=== PATIENT | female | born 1985 | race Caucasian/White ===

== ENCOUNTER 2016-09-16 11:08 | Emergency (ER) | payer OTHER ==
[~2016-09-16] VITALS: Ht 165.1 cm; Wt 83.0 kg
[~2016-09-16 11:08] MED LIST: ANT125 PO; GLC/500 PO; LEVO175T3 PO; ONDA4TAB7 SL; SERT-234 PO
[2016-09-16 11:19] VITALS: TEMP 36.6; Ht 165.1 cm; Wt 83.0 kg
[2016-09-16] MEDS ORDERED: SODIUM CHLORIDE 0.9% 1000ML 1,000 ML IV STA (11:20)
--- NOTE | 2016-09-16 11:29 | EMERGENCY ROOM VISIT NOTE ---
History Report prepared by Martin: Chucky Camacho Under the Supervision of: Dr. Alfonso Stovall D.O. First contact with patient: 11:11 Stated Complaint: CHEST PAIN History of Present Illness The patient is a 31 year old female who presents to the Emergency Room with complaints of persistent weakness that started upon waking this morning. She says she "just doesn't feel right" and she "feels like jell-o". The patient notes that she has been feeling foggy and having trouble focusing for the past 2 weeks. The patient had similar symptoms a few years ago and was put on Metformin. She still takes the Metformin. The patient currently says she feels cold and tingly in her hands, and it is hard to take a deep breath. She is tired as well. Her legs feel heavy and she does not have normal strength. The back of her neck hurts, and she has a hard time holding it up. She additionally notes a slight headache coming on. The patient thinks something is going on with her thyroid medication. The patient denies any shortness of breath or chest pain. She said she had recent blood work and her thyroid was up and her insulin was high. The patient's sugar was 86 earlier, so she had 2 puddings and the nurse gave her syrup. She has diabetes, anxiety, and depression. The patient drinks occasional alcohol but does not use tobacco products. She is currently having her period. Source of History: patient Onset: Upon waking this morning Position: other (global - weakness) Symptom Intensity: "feels like Jell-O" Timing: other (persistent) Associated Symptoms: + fatigue, + headache, + neck pain, No SOB, No chest pain Note: Associated symptoms: Feels cold and tingly in hands, hard to take a deep breath , legs feel heavy, does not have normal strength. Review of Systems See HPI for pertinent positives & negatives. A total of 10 systems reviewed and were otherwise negative. Past Medical & Surgical Medical Problems: (1) Anxiety State Nos (2) Depression (3) Hypoinsulinemia (4) Hypothyroidism Nos (5) Migraine Unspecified W/O Intractable Migraine (6) Removal of ovarian cyst (7) Tobacco Use Disorder (8) [place] Teeth Removal Family History Cancer Diabetes mellitus Social History Smoking Status: Former Smoker Smokeless Tobacco Use: No Alcohol Use: occasionally Marital Status: Housing Status: lives with family Occupation Status: employed Current/Historical Medications Scheduled Control Pills ( Control Pills), 1 TAB PO DAILY Levothyroxine Sodium (Levothyroxine Sodium), 150 MCG PO DAILY Lisinopril (Lisinopril), 10 MG PO DAILY Metformin Hcl (Metformin Hcl Er), 1,000 MG PO DAILY Phentermine Hcl (Phentermine Hcl), 37.5 MG PO DAILY Venlafaxine Hcl (Venlafaxine Extended Rel), 37.5 MG PO DAILY Venlafaxine Hcl (Effexor Extended Rel), 150 MG PO DAILY Allergies Coded Allergies: Prednisone (Verified Allergy, Severe, resp, 11/28/14) Sulfa Drugs (Verified Allergy, Mild, 11/28/14) Physical Exam Vital Signs Date Time Temp Pulse Resp B/P Pulse Ox O2 Delivery O2 Flow Rate FiO2 09/16/16 13:36 86 20 139/85 99 09/16/16 12:53 93 18 129/75 100 Room Air 09/16/16 11:19 36.6 93 20 134/92 98 Room Air 09/16/16 11:16 111 Physical Exam GENERAL: Patient is awake and alert to verbal commands. Closes eyes while speaking. Appears mildly anxious but no in pain. EYES: The conjunctivae are clear. The pupils are round and reactive. EARS, NOSE, MOUTH AND THROAT: The nose is without any evidence of any deformity. Mucous membranes are moist tongue is midline NECK: The neck is nontender and supple. RESPIRATORY: Normal respiratory effort is noted there is no evidence of wheezing rhonchi or rales CARDIOVASCULAR: Regular rate and rhythm noted there no murmurs rubs or gallops normal S1 normal S2 GASTROINTESTINAL: The abdomen is soft. Bowel sounds are present in all quadrants. Abdomen is nontender MUSCULOSKELETAL/EXTREMITIES: There is no evidence of gross deformity full range of motion is noted in the hips and shoulders SKIN: There is no obvious evidence of any rash. There are no petechiae, pallor or cyanosis noted. NEUROLOGIC: Patient is awake alert and oriented x3 strength is symmetric patellar reflexes are 2+ bilaterally Medical Decision & Procedures ER Provider Diagnostic Interpretation: X ray results and stated below per my interpretation and radiology interpretation. Other radiology results per my review and radiologist interpretation: CT OF THE HEAD WITHOUT CONTRAST CLINICAL HISTORY: Headache. COMPARISON STUDY: Head CT November 28, 2014. CT DOSE: 537.48 mGy.cm TECHNIQUE: Helical axial images of the head were obtained without IV contrast. Automated exposure control was utilized for the study. FINDINGS: No acute intracranial hemorrhage, midline shift or mass effect is present. Brain volume is normal. Ventricular system is normal. The basilar cisterns are patent. There are no extra-axial collections. Arevalo-white differentiation is maintained. There are no findings to suggest acute dural sinus thrombosis or acute territorial infarct. There are no significant calvarial abnormalities. Visualized portions of the sinuses are clear. IMPRESSION: No acute intracranial findings. Electronically signed by: Breezy Miguel M.D. 09/16/2016 11:56 AM CHEST ONE VIEW PORTABLE HISTORY: Short of breath. COMPARISON: Chest 11/28/2014. FINDINGS: The lungs are clear. Cardiac silhouette is normal in size. No pleural effusions. No pneumothorax. IMPRESSION: No acute process. Electronically signed by: Marcio Valdes M.D. 09/16/2016 11:48 AM Laboratory Results 09/16/16 11:00 Red Blood Count 4.39, Mean Corpuscular Volume 90.2, Mean Corpuscular Hemoglobin 31.4, Mean Corpuscular Hemoglobin Concent 34.8, Mean Platelet Volume 10.5, Neutrophils (%) (Auto) 70.6, Lymphocytes (%) (Auto) 24.8, Monocytes (%) (Auto) 3.1, Eosinophils (%) (Auto) 1.2, Basophils (%) (Auto) 0.1, Neutrophils # (Auto) 8.00, Lymphocytes # (Auto) 2.81, Monocytes # (Auto) 0.35, Eosinophils # (Auto) 0.14, Basophils # (Auto) 0.01 09/16/16 11:00 Test 09/16/16 11:00 09/16/16 11:50 White Blood Count 11.33 K/uL (4.8-10.8) Red Blood Count 4.39 M/uL (4.2-5.4) Hemoglobin 13.8 g/dL (12.0-16.0) Hematocrit 39.6 % (37-47) Mean Corpuscular Volume 90.2 fL (80-100) Mean Corpuscular Hemoglobin 31.4 pg (25-34) Mean Corpuscular Hemoglobin Concent 34.8 g/dl (32-36) Platelet Count 257 K/uL (130-400) Mean Platelet Volume 10.5 fL (7.4-10.4) Neutrophils (%) (Auto) 70.6 % Lymphocytes (%) (Auto) 24.8 % Monocytes (%) (Auto) 3.1 % Eosinophils (%) (Auto) 1.2 % Basophils (%) (Auto) 0.1 % Neutrophils # (Auto) 8.00 K/uL (1.4-6.5) Lymphocytes # (Auto) 2.81 K/uL (1.2-3.4) Monocytes # (Auto) 0.35 K/uL (0.11-0.59) Eosinophils # (Auto) 0.14 K/uL (0-0.5) Basophils # (Auto) 0.01 K/uL (0-0.2) RDW Standard Deviation 42.2 fL (36.4-46.3) RDW Coefficient of Variation 12.7 % (11.5-14.5) Immature Granulocyte % (Auto) 0.2 % Immature Granulocyte # (Auto) 0.02 K/uL (0.00-0.02) Prothrombin Time 10.0 SECONDS (9.0-12.0) Prothromb Time International Ratio 0.9 (0.9-1.1) Activated Partial Thromboplast Time 26.5 SECONDS (21.0-31.0) Partial Thromboplastin Ratio 1.0 D-Dimer < 190 ug/L FEU (0-500) Anion Gap 13.0 mmol/L (3-11) Est Creatinine Clear Calc Drug Dose 98.3 ml/min Estimated GFR () 100.8 Estimated GFR (Non- 87.0 BUN/Creatinine Ratio 9.8 (10-20) Calcium Level 9.6 mg/dl (8.5-10.1) Magnesium Level 2.1 mg/dl (1.8-2.4) Total Bilirubin 0.3 mg/dl (0.2-1) Direct Bilirubin < 0.1 mg/dl (0-0.2) Aspartate Amino Transf (AST/SGOT) 24 U/L (15-37) Alanine Aminotransferase (ALT/SGPT) 47 U/L (12-78) Alkaline Phosphatase 72 U/L (45-117) Total Creatine Kinase 95 U/L (26-192) Creatine Kinase MB 0.9 ng/ml (0.5-3.6) Creatine Kinase MB Ratio 0.9 (0-3.0) Troponin I < 0.015 ng/ml (0-0.045) Total Protein 7.5 gm/dl (6.4-8.2) Albumin 4.1 gm/dl (3.4-5.0) Lipase 112 U/L (73-393) Thyroid Stimulating Hormone (TSH) 0.048 uIu/ml (0.300-4.500) Free Thyroxine 1.35 ng/dl (0.80-1.60) Human Chorionic Gonadotropin, Qual NEG (NEG) Urine Color YELLOW Urine Appearance CLEAR (CLEAR) Urine pH 6.0 (4.5-7.5) Urine Specific [place] 1.018 (1.000-1.030) Urine Protein NEG (NEG) Urine Glucose (UA) NEG (NEG) Urine Ketones NEG (NEG) Urine Occult Blood 3+ (NEG) Urine Nitrite NEG (NEG) Urine Bilirubin NEG (NEG) Urine Urobilinogen NEG (NEG) Urine Leukocyte Esterase NEG (NEG) Urine WBC (Auto) 1-5 /hpf (0-5) Urine RBC (Auto) 0-4 /hpf (0-4) Urine Hyaline Casts (Auto) 1-5 /lpf (0-5) Urine Epithelial Cells (Auto) >30 /lpf (0-5) Urine Bacteria (Auto) 1+ (NEG) Urine Mucus PRESENT (NONE PRSENT) Urine Yeast (Auto) (NONE PRSENT) Laboratory results per my review. Medications Administered Medications (Trade) Dose Ordered Sig/Raghavendra Route Start Time Stop Time Status Last Admin Dose Admin Sodium Chloride (Nss 1000ml) 1,000 ml @ 999 mls/hr Q1H1M STAT IV 09/16/16 11:20 09/16/16 12:20 DC 09/16/16 11:24 999 MLS/HR ECG Indication: weakness Rate (beats per minute): 103 Rhythm: sinus tachycardia Findings: no ectopy, other (no acute ST segment abnormalities, imcomplete RBBB pattern noted) Change: no significant change (compared to 11/28/2014) ED Course 1114: The patient was evaluated in room C4. A complete history and physical examination were performed. 1120: Ordered NSS 1000 ml @ 999 mls/hr IV. 1328: I reevaluated the patient and she is resting comfortably. The patient verbally expressed understanding and agreement of the treatment plan. The patient will be discharged. Medical Decision Differential diagnosis: Etiologies such as metabolic, infection, hypo/hyperglycemia, electrolyte abnormalities, cardiac sources, intracerebral event, toxicologic, neurologic, as well as others were entertained. Nursing notes reviewed. The patient is a 31-year-old female who presented to the emergency department with multiple complaints. She states that she does not feel well and states that she feels very weak. She has generalized weakness which was all over. She also complains of numbness in her extremities. She was not hyperventilating when she presented to the emergency department but it is possible this is the cause of her symptoms. No other cause could be found. Her left which did not show any acute abnormality that would explain the symptoms. The patient was treated with IV fluids and on subsequent reevaluation was feeling much better. She had no symptoms on final reevaluation. I discussed the patient's laboratory and radiographic studies with her. She was encouraged to rest and avoid any strenuous activity. She was also encouraged follow-up with her primary care physician to discuss any further testing such as MRI the brain or EEG. She was also encouraged to return to the emergency department immediately if symptoms change worsen or if the need arises. Impression Primary Impression: Weakness Additional Impression: Headache Scribe Attestation The scribe's documentation has been prepared under my direction and personally reviewed by me in its entirety. I confirm that the note above accurately reflects all work, treatment, procedures, and medical decision making performed by me. Departure Information Dispostion Home / Self-Care Referrals [facility] (PCP) Radha De La O Forms HOME CARE DOCUMENTATION FORM, IMPORTANT VISIT INFORMATION, Work Instructions Patient Instructions A Signature Page, ED Weakness [facility] Additional Instructions Call your family to schedule a follow-up appointment. Rest and avoid any strenuous activity. Discussed the possibility that you may require further studies such as an MRI the brain or an EEG if symptoms worsen or seemed to be more like seizure. Return to the emergency department if symptoms worsen or if need arises.
[2016-09-16 11:30] LABS: BASO % 0.1 %; BASO ABS # 0.01 K/uL (0-0.2); COMPLETE YES; EOS % 1.2 %; HEMATOCRIT 39.6 % (37-47); IG% 0.2 %; LYMPH % 24.8 %; LYMPH ABS # 2.81 K/uL (1.2-3.4); MEAN CELL VOLUME 90.2 fL (80-100); MEAN CORPUSCULAR HEMOGLOBIN 31.4 pg (25-34); MEAN CORPUSCULAR HGB CONC 34.8 g/dl (32-36); MEAN PLATELET VOLUME 10.5 fL (7.4-10.4); MONO % 3.1 %; NEUT % 70.6 %; PLATELET COUNT 257 K/uL (130-400); RED BLOOD COUNT 4.39 M/uL (4.2-5.4); WHITE BLOOD COUNT 11.33 K/uL (4.8-10.8)
[2016-09-16 11:41] LABS: INR 0.9 (0.9-1.1)
[2016-09-16 11:50] LABS: ALT/SGPT 47 U/L (12-78); BLOOD UREA NITROGEN 9 mg/dl (7-18); BUN/CREATININE RATIO 9.8 (10-20); CALCIUM 9.6 mg/dl (8.5-10.1); CARBON DIOXIDE 22 mmol/L (21-32); CHLORIDE 106 mmol/L (98-107); CREATININE 0.89 mg/dl (0.60-1.20); GLUCOSE 114 mg/dl (70-99); MAGNESIUM 2.1 mg/dl (1.8-2.4); POTASSIUM 3.5 mmol/L (3.5-5.1); SODIUM 141 mmol/L (136-145)
--- NOTE | 2016-09-16 11:50 | DIAGNOSTIC IMAGING REPORT ---
CHEST ONE VIEW PORTABLE HISTORY: Short of breath. COMPARISON: Chest 11/28/2014. FINDINGS: The lungs are clear. Cardiac silhouette is normal in size. No pleural effusions. No pneumothorax. IMPRESSION: No acute process. Electronically signed by: Marcio Valdes M.D. 09/16/2016 11:48 AM
[2016-09-16 11:55] LABS: PREG INTERNAL NEGATIVE QC NEG CLEAR BACKGROUND; PREG INTERNAL POSITIVE QC POS CONTROL LINE
--- NOTE | 2016-09-16 11:58 | DIAGNOSTIC IMAGING REPORT ---
CT OF THE HEAD WITHOUT CONTRAST CLINICAL HISTORY: Headache. COMPARISON STUDY: Head CT November 28, 2014. CT DOSE: 537.48 mGy.cm TECHNIQUE: Helical axial images of the head were obtained without IV contrast. Automated exposure control was utilized for the study. FINDINGS: No acute intracranial hemorrhage, midline shift or mass effect is present. Brain volume is normal. Ventricular system is normal. The basilar cisterns are patent. There are no extra-axial collections. Arevalo-white differentiation is maintained. There are no findings to suggest acute dural sinus thrombosis or acute territorial infarct. There are no significant calvarial abnormalities. Visualized portions of the sinuses are clear. IMPRESSION: No acute intracranial findings. Electronically signed by: Breezy Miguel M.D. 09/16/2016 11:56 AM
[2016-09-16 11:59] LABS: ALKALINE PHOSPHATASE 72 U/L (45-117); AST/SGOT 24 U/L (15-37); CKMB/CK RATIO 0.9 (0-3.0); THYROID STIMULATING HORMONE 0.048 uIu/ml (0.300-4.500)
[2016-09-16] MEDS ORDERED: BCPILLS PO (12:07)
[2016-09-16] MEDS ORDERED: VENL37.593 PO (12:07)
[2016-09-16] MEDS ORDERED: LEVO150T9 PO (12:07)
[2016-09-16] MEDS ORDERED: PHEN37.5 PO (12:07)
[2016-09-16] MEDS ORDERED: METF1TAB85 PO (12:07)
[2016-09-16] MEDS ORDERED: EFFSR150 PO (12:07)
[2016-09-16] MEDS ORDERED: LISI-461 PO (12:07)
[2016-09-16 12:25] LABS: URINE APPEARANCE CLEAR (CLEAR); URINE BILIRUBIN NEG (NEG); URINE COLOR YELLOW; URINE EPITHELIAL CELL AUTO >30 /lpf (0-5); URINE NITRITE NEG (NEG); URINE SPECIFIC GRAVITY 1.018 (1.000-1.030); UROBILINOGEN NEG (NEG)
[2016-09-16 12:26] LABS: MANUAL MICROSCOPIC REQUIRED? NO; REVIEW REQ? YES
[2016-09-16 12:34] LABS: URINE MUCUS PRESENT (NONE PRSENT)
[2016-09-16 13:36] VITALS: BP 139/85; PULSE 86; O2SAT 99
[2017-03-07] MEDS ORDERED: VENL150C56 PO (19:36)
== END 2016-09-16 13:37 | disposition home or self-care (01) ==
LOC: EDBD 11:08 → C.EDC 11:09
DX: R53.1 Weakness (principal); R51 Headache; E11.9 Type 2 diabetes mellitus without complications; E03.9 Hypothyroidism, unspecified; F32.9 Major depressive disorder, single episode, unspecified; Z87.891 Personal history of nicotine dependence; Z79.3 Long term (current) use of hormonal contraceptives; Z79.84 Long term (current) use of oral hypoglycemic drugs; Z79.899 Other long term (current) drug therapy; Z88.2 Allergy status to sulfonamides; Z88.8 Allergy status to other drugs, medicaments and biological substances

== ENCOUNTER 2017-03-07 18:21 | Emergency (ER) | payer OTHER ==
[~2017-03-07] VITALS: Ht 162.6 cm; Wt 80.6 kg
[~2017-03-07 18:21] MED LIST changes: -ANT125 PO; +BCPILLS PO; +EFFSR150 PO; -GLC/500 PO; +LEVO150T9 PO; -LEVO175T3 PO; +LISI-461 PO; +METF1TAB85 PO; -ONDA4TAB7 SL; +PHEN37.5 PO; -SERT-234 PO; +VENL37.593 PO
[2017-03-07 18:25] VITALS: Ht 162.6 cm; Wt 80.6 kg
[2017-03-07] MEDS ORDERED: KETOROLAC TROMETHAMINE 30 MG/ML VIAL IV STA (18:34)
[2017-03-07] MEDS ORDERED: ONDANSETRON INJ 2 MG/ML 2 ML VIAL IV STA (18:34)
[2017-03-07] MEDS ORDERED: SODIUM CHLORIDE 0.9% 1000ML 1,000 ML IV STA (18:34)
[2017-03-07 19:08] LABS: BASO % 0.4 %; BASO ABS # 0.02 K/uL (0-0.2); COMPLETE YES; EOS % 3.6 %; HEMATOCRIT 39.6 % (37-47); IG% 0.2 %; LYMPH % 41.6 %; LYMPH ABS # 2.06 K/uL (1.2-3.4); MEAN CELL VOLUME 89.2 fL (80-100); MEAN CORPUSCULAR HGB CONC 33.6 g/dl (32-36); MEAN PLATELET VOLUME 10.1 fL (7.4-10.4); MONO % 9.7 %; NEUT % 44.5 %; PLATELET COUNT 170 K/uL (130-400); RED BLOOD COUNT 4.44 M/uL (4.2-5.4); WHITE BLOOD COUNT 4.95 K/uL (4.8-10.8)
[2017-03-07 19:25] LABS: URINE APPEARANCE CLEAR (CLEAR); URINE BILIRUBIN NEG (NEG); URINE COLOR DK YELLOW; URINE NITRITE NEG (NEG); URINE SPECIFIC GRAVITY 1.022 (1.000-1.030); UROBILINOGEN NEG (NEG); ZZUR CULT IF INDIC CLEAN CATCH NO
[2017-03-07 19:26] LABS: ALT/SGPT 46 U/L (12-78); BLOOD UREA NITROGEN 10 mg/dl (7-18); BUN/CREATININE RATIO 15.4 (10-20); CALCIUM 8.3 mg/dl (8.5-10.1); CARBON DIOXIDE 24 mmol/L (21-32); CHLORIDE 109 mmol/L (98-107); CREATININE 0.63 mg/dl (0.60-1.20); GLUCOSE 93 mg/dl (70-99); POTASSIUM 3.2 mmol/L (3.5-5.1); SODIUM 142 mmol/L (136-145)
[2017-03-07 19:27] LABS: MANUAL MICROSCOPIC REQUIRED? NO; REVIEW REQ? NO
[2017-03-07 19:33] LABS: ALKALINE PHOSPHATASE 81 U/L (45-117); AST/SGOT 27 U/L (15-37)
[2017-03-07] MEDS ORDERED: LEVO150T9 PO (19:35)
[2017-03-07] MEDS ORDERED: EFF/375 PO (19:37)
[2017-03-07] MEDS ORDERED: NORGTAB36 PO (19:39)
--- NOTE | 2017-03-07 19:50 | EMERGENCY ROOM VISIT NOTE ---
History Report prepared by Martin: Pablo Jones Under the Supervision of: Dr. Jordan Collado D.O. First contact with patient: 18:28 Chief Complaint: NAUSEA Stated Complaint: DIZZINESS, N/V History of Present Illness The patient is a 31 year old female who presents to the Emergency Room with complaints of nausea that began today. Over the past couple of days, the patient states she passed 1 or 2 kidney stones. She has a history of this and notes that when she passes them, she tends to feel better. However, she does not feel back to baseline after passing these stones. She notes that she has been having this nausea with vomiting, chills, diaphoresis, mild dizziness, and increased thirst. She also states that her flanks still hurt. She has been on an antibiotic for the past three days that was prescribed by her PCP secondary to a possible urinary tract infection. She denies any fevers, shortness of breath, or chest pain. Her last menstrual period was about 4 weeks ago. She states that she is not typically on time. She is taking Orthotricycline, and notes her period sometimes comes every other month. Source of History: patient Onset: today Position: other (GI) Symptom Intensity: moderate Quality: other (Nausea) Timing: other (Persistent) Associated Symptoms: + chills, + diaphoresis, + vomiting, + back pain, No fevers, No chest pain, No SOB Note: She has mild dizziness and an increased thirst. Review of Systems See HPI for pertinent positives & negatives. A total of 10 systems reviewed and were otherwise negative. Past Medical & Surgical Medical Problems: (1) Kidney stones Family History Patient reports no known family medical history. Social History Smoking Status: Never Smoker Smokeless Tobacco Use: No Alcohol Use: occasionally Marital Status: Housing Status: lives with family Occupation Status: employed Current/Historical Medications Scheduled Levothyroxine Sodium (Levothyroxine Sodium), 150 MCG PO DAILY Norgestimate-Ethinyl Estradiol (Ortho Tri-Cyclen), 1 TAB PO DAILY Venlafaxine Hcl (Effexor Extended Rel), 150 MG PO DAILY Venlafaxine Hcl (Effexor), 37.5 MG PO DAILY Allergies Uncoded Allergies: SULFA (Allergy, Mild, hives, 03/07/17) Physical Exam Vital Signs Date Time Temp Pulse Resp B/P (MAP) Pulse Ox O2 Delivery O2 Flow Rate FiO2 03/07/17 18:25 37.4 87 16 142/94 97 Room Air Physical Exam CONSTITUTIONAL/VITAL SIGNS: Reviewed / noted above. GENERAL: Non-toxic in appearance. INTEGUMENTARY: Warm, dry, and [place]. HEAD: Normocephalic. EYES: without scleral icterus or trauma. ENT/OROPHARYNX: clear and moist. LYMPHADENOPATHY/NECK: Is supple without lymphadenopathy or meningismus. RESPIRATORY: Lungs clear and equal. CARDIOVASCULAR: Regular rate and rhythm. GI/ABDOMEN: Soft and nontender. No organomegaly or pulsatile mass. No rebound or guarding. Normal bowel sounds. EXTREMITIES: Warm and well perfused. BACK: Left CVA tenderness. NEUROLOGICAL: Intact without focal deficits. PSYCHIATRIC: normal affect. MUSCULOSKELETAL: Normally developed with good muscle tone. Medical Decision & Procedures Laboratory Results 03/07/17 18:48 Red Blood Count 4.44, Mean Corpuscular Volume 89.2, Mean Corpuscular Hemoglobin 30.0, Mean Corpuscular Hemoglobin Concent 33.6, Mean Platelet Volume 10.1, Neutrophils (%) (Auto) 44.5, Lymphocytes (%) (Auto) 41.6, Monocytes (%) (Auto) 9.7, Eosinophils (%) (Auto) 3.6, Basophils (%) (Auto) 0.4, Neutrophils # (Auto) 2.20, Lymphocytes # (Auto) 2.06, Monocytes # (Auto) 0.48, Eosinophils # (Auto) 0.18, Basophils # (Auto) 0.02 03/07/17 18:48 Test 03/07/17 18:48 03/07/17 18:50 White Blood Count 4.95 K/uL (4.8-10.8) Red Blood Count 4.44 M/uL (4.2-5.4) Hemoglobin 13.3 g/dL (12.0-16.0) Hematocrit 39.6 % (37-47) Mean Corpuscular Volume 89.2 fL (80-100) Mean Corpuscular Hemoglobin 30.0 pg (25-34) Mean Corpuscular Hemoglobin Concent 33.6 g/dl (32-36) Platelet Count 170 K/uL (130-400) Mean Platelet Volume 10.1 fL (7.4-10.4) Neutrophils (%) (Auto) 44.5 % Lymphocytes (%) (Auto) 41.6 % Monocytes (%) (Auto) 9.7 % Eosinophils (%) (Auto) 3.6 % Basophils (%) (Auto) 0.4 % Neutrophils # (Auto) 2.20 K/uL (1.4-6.5) Lymphocytes # (Auto) 2.06 K/uL (1.2-3.4) Monocytes # (Auto) 0.48 K/uL (0.11-0.59) Eosinophils # (Auto) 0.18 K/uL (0-0.5) Basophils # (Auto) 0.02 K/uL (0-0.2) RDW Standard Deviation 41.9 fL (36.4-46.3) RDW Coefficient of Variation 12.9 % (11.5-14.5) Immature Granulocyte % (Auto) 0.2 % Immature Granulocyte # (Auto) 0.01 K/uL (0.00-0.02) Anion Gap 9.0 mmol/L (3-11) Est Creatinine Clear Calc Drug Dose 134.1 ml/min Estimated GFR () 139.5 Estimated GFR (Non- 120.4 BUN/Creatinine Ratio 15.4 (10-20) Calcium Level 8.3 mg/dl (8.5-10.1) Total Bilirubin 0.2 mg/dl (0.2-1) Direct Bilirubin < 0.1 mg/dl (0-0.2) Aspartate Amino Transf (AST/SGOT) 27 U/L (15-37) Alanine Aminotransferase (ALT/SGPT) 46 U/L (12-78) Alkaline Phosphatase 81 U/L (45-117) Total Protein 6.5 gm/dl (6.4-8.2) Albumin 3.2 gm/dl (3.4-5.0) Lipase 163 U/L (73-393) Urine Color DK YELLOW Urine Appearance CLEAR (CLEAR) Urine pH 6.0 (4.5-7.5) Urine Specific [place] 1.022 (1.000-1.030) Urine Protein NEG (NEG) Urine Glucose (UA) NEG (NEG) Urine Ketones NEG (NEG) Urine Occult Blood TRACE (NEG) Urine Nitrite NEG (NEG) Urine Bilirubin NEG (NEG) Urine Urobilinogen NEG (NEG) Urine Leukocyte Esterase NEG (NEG) Urine WBC (Auto) 1-5 /hpf (0-5) Urine RBC (Auto) 0-4 /hpf (0-4) Urine Hyaline Casts (Auto) 1-5 /lpf (0-5) Urine Epithelial Cells (Auto) 10-20 /lpf (0-5) Urine Bacteria (Auto) NEG (NEG) Urine Test NEG (NEG) Laboratory results as stated above per my review. Medications Administered Medications (Trade) Dose Ordered Sig/Raghavendra Route Start Time Stop Time Status Last Admin Dose Admin Sodium Chloride 1,000 ml @ 999 mls/hr Q1H1M STAT IV 03/07/17 18:34 03/07/17 19:34 DC 03/07/17 18:53 999 MLS/HR Ondansetron HCl (Zofran Inj) 4 mg NOW STAT IV 03/07/17 18:34 03/07/17 18:35 DC 03/07/17 18:53 4 MG Ketorolac Tromethamine (Toradol Inj) 30 mg NOW STAT IV 03/07/17 18:34 03/07/17 18:35 DC 03/07/17 18:55 30 MG ED Course 1827: Previous medical records were reviewed. The patient was evaluated in room B10. A complete history and physical examination was performed. 1833: Ordered Toradol Inj 30 mg IV, Zofran Inj 4 mg IV, Sodium Chloride 1000 ml @ 999 mls/hr IV. 1950: On reevaluation, the patient is resting comfortably. I discussed the results and findings with the patient. She verbalized agreement of the treatment plan. She was discharged home. Medical Decision Differential considered: pancreatitis, hepatitis, or acute cholecystitis, AAA, UTI, pyelonephritis, kidney stones, appendicitis, diverticulitis, shingles, bowel obstruction mesenteric ischemia, intussusception, hernia, ovarian torsion , ruptured ovarian cyst,ectopic , . Medication Reconciliation: I attest that I have personally reviewed the patient' s current medication list. Patient was found to have a slightly elevated blood pressure due to circumstances. I do not believe that the patient requires hypertension monitoring. This is a 31-year-old female who presents to the ED with a chief complaint of some nausea, lightheadedness and feeling dehydrated. The patient states that she thinks that she may past kidney stone this weekend. Since that time the patient has been feeling dehydrated although nauseated. She states that she does have some Zofran at home. Her initial blood pressure here was 142/94. This is likely situational. The patient's exam was unremarkable with exception of some mild left CVA tenderness. CBC and complete metabolic panel were unremarkable. Lipase is negative. test was negative. Urine did not show infection. There is a trace amount of blood. The patient was hydrated with IV fluids. She was given some IV Toradol and IV Zofran. She states that she is feeling better. She is felt to be stable for discharge and outpatient follow-up. She will return for any recurrence or worsening symptoms. Impression Primary Impression: Nausea Additional Impressions: Lightheaded Flank pain Scribe Attestation The scribe's documentation has been prepared under my direction and personally reviewed by me in its entirety. I confirm that the note above accurately reflects all work, treatment, procedures, and medical decision making performed by me. Departure Information Dispostion Home / Self-Care Referrals Radha De La [facility] (PCP) Forms HOME CARE DOCUMENTATION FORM, IMPORTANT VISIT INFORMATION Patient Instructions My [facility] Additional Instructions Follow-up with your doctor for further care and evaluation in 1-2 days if symptoms persist. Return to the emergency department for worsening or new symptoms or any concerns. You have been examined and treated today on an emergency basis only. This is not a substitute for, or an effort to provide, complete comprehensive medical care. It is impossible to recognize and treat all injuries or illnesses in a single emergency department visit. It is therefore important that you follow up closely with your doctor. Call as soon as possible for an appointment. Problem Qualifiers
[2017-03-07 20:25] VITALS: BP 128/87; PULSE 81; TEMP 37.4; O2SAT 97
== END 2017-03-07 20:26 | disposition home or self-care (01) ==
LOC: C.EDB 18:23 → MERGE 18:23 → C.EDB 20:26
DX: R11.2 Nausea with vomiting, unspecified (principal); R42 Dizziness and giddiness; R10.9 Unspecified abdominal pain; N20.0 Calculus of kidney; Z87.442 Personal history of urinary calculi; Z79.3 Long term (current) use of hormonal contraceptives

== ENCOUNTER 2017-07-06 17:42 | Emergency (ER) | payer OTHER ==
[~2017-07-06] VITALS: Ht 165.1 cm; Wt 85.8 kg
[~2017-07-06 17:42] MED LIST changes: +EFF/375 PO; +NORGTAB36 PO
[2017-07-06 17:43] VITALS: TEMP 36.6; Ht 165.1 cm; Wt 85.8 kg
[2017-07-06] MEDS ORDERED: SODIUM CHLORIDE 0.9% 1000ML 1,000 ML IV STA (17:57)
--- NOTE | 2017-07-06 18:03 | EMERGENCY ROOM VISIT NOTE ---
History Report prepared by Kayibe: Lakeisha Maldonado Under the Supervision of: Dr. Sammy Liriano M.D. First contact with patient: 17:46 Chief Complaint: HEADACHE Stated Complaint: HEADACHE,SWOLLEN OCCIPITAL History of Present Illness The patient is a 32 year old female who presents to the Emergency Room with complaints of a pressure headache beginning Tuesday. The patient states her headache was controlled with Ibuprofen until this morning. Today, the patient went to a chiropractor who she sees for her migraines. Her chiropractor told the patient her occipital muscles were swollen. The patient was unable to get the swelling down with ice. She notes seeing black spots, nausea, and ear pressure. She denies any numbness or weakness, abdominal pain, fever, or vaginal bleeding. The patient has a history of migraines but states that she hasn't had a migraine this severe in a couple years. The patient is 10 weeks and has had no issues with her thus far. She has two children and denies having headaches with her previous pregnancies. Source of History: patient Onset: Tuesday Position: head Symptom Intensity: severe Quality: ache, pressure Associated Symptoms: + nausea, No fevers, No abdominal pain, No weakness, No numbness Note: Pt notes ear pressure and seeing black spots. Review of Systems See HPI for pertinent positives & negatives. A total of 10 systems reviewed and were otherwise negative. Past Medical & Surgical Medical Problems: (1) Anxiety State Nos (2) Depression (3) Hypoinsulinemia (4) Hypothyroidism Nos (5) Kidney stones (6) Migraine Unspecified W/O Intractable Migraine (7) Removal of ovarian cyst (8) Tobacco Use Disorder (9) [place] Teeth Removal Old medical records were reviewed. Nurse's notes were reviewed and I agree with. Family History Cancer Diabetes mellitus Social History Smoking Status: Never Smoker Alcohol Use: occasionally Marital Status: Housing Status: lives with family Occupation Status: employed Current/Historical Medications Scheduled Levothyroxine Sodium (Levothyroxine Sodium), 200 MCG PO QAM Venlafaxine Hcl (Effexor Extended Rel), 150 MG PO DAILY Scheduled PRN Ondansetron (Ondansetron HCl), 8 MG PO TID PRN for Nausea Allergies Coded Allergies: Prednisone (Verified Allergy, Severe, resp, 11/28/14) Sulfa Drugs (Verified Allergy, Mild, 11/28/14) Uncoded Allergies: SULFA (Allergy, Mild, hives, 03/08/17) Physical Exam Vital Signs Date Time Temp Pulse Resp B/P (MAP) Pulse Ox O2 Delivery O2 Flow Rate FiO2 07/06/17 18:59 72 18 136/91 98 Room Air 07/06/17 17:43 36.6 83 16 179/129 98 Room Air Physical Exam General: Non-ill appearing young female in no acute distress. HEENT: Normal cephalic atraumatic. Pupils are equal round and reactive to light. Extraocular movements. No photophobia. Oropharynx is pink with moist mucous membranes. No swelling of the mouth lips or tongue. No brudzinski signs. No visible swelling or redness to occipital. Neck: Supple with a midline trachea. No meningeal signs or stiffness, no JVD or bruits. No Stridor. Chest: Clear to auscultation bilaterally. No wheezes or rhonchi. No increased work of breathing. Heart: regular rate and rhythm. Abdomen: Soft nontender, nondistended without rebound guarding or rigidity. Extremities: No cyanosis clubbing or edema. No calf tenderness or assymetry Spine/Back. Non tender to palpation. No CVA tenderness Skin: Good turgor without rashes. Neurologic exam: Cranial nerves two through 12 are intact. Motor and sensation are intact and symmetrical throughout. Medical Decision & Procedures Medications Administered Medications (Trade) Dose Ordered Sig/Raghavendra Route Start Time Stop Time Status Last Admin Dose Admin Sodium Chloride 1,000 ml @ 999 mls/hr Q1H1M STAT IV 07/06/17 17:57 07/06/17 18:57 DC 07/06/17 17:57 999 MLS/HR Acetaminophen (Tylenol Tab) 1,000 mg NOW STAT PO 07/06/17 18:12 07/06/17 18:13 DC 07/06/17 18:20 1,000 MG Prochlorperazine Edisylate (Compazine Inj) 10 mg NOW STAT IV 07/06/17 18:12 07/06/17 18:13 DC 07/06/17 18:19 10 MG Oxycodone HCl (Roxicodone Immediate Rel 5MG Home Pack) 1 homepack UD ONCE PO 07/06/17 19:00 07/06/17 19:01 DC 07/06/17 19:03 1 HOMEPACK ED Course 175: Past medical records reviewed. The patient was evaluated in room B5, and a complete history and physical examination were performed. 175: Sodium Chloride 1000 ml @ 999 mls/hr IV. 1811: Compazine Inj 10 mg IV, Tylenol Tab 1000 mg PO. 1815: I reassessed the patient, she is resting comfortably. 1853: The patient is feeling better and reports she is now tired. I offered more pain medication but she declined and will take some oxycodone IR at home. 1858: The patient's blood pressure is 136/91. 1906: Upon reevaluation, the patient is resting comfortably. I discussed the results and treatment plan with the patient. She verbalized agreement of the treatment plan. The patient was discharged home. Medical Decision Differential diagnosis includes: migraine, infection, trauma, related illness, electrolyte metabolic abnormality. This patient comes in as described above. She is having a headache that is consistent with her previous migraine. She has a long history of this. She is and she went to her chiropractor and got adjusted felt a little bit better. She feels she is swollen in the occipital area. She is nontoxic and non-lethargic. She has nothing to suggest meningitis or encephalitis or trauma or toxicologic process. His headache did not start suddenly abruptly but is getting gradually worse. IV access established was hydrated 1 L IV normal saline bolus. I discussed medications with her ED pharmacist and given the fact she is we felt the best option was Compazine 10 mg IV as well as Tylenol 1 g by mouth. With these measures she was started to feel better she felt a little bit sleepy. I offered to give her some more pain medication with morphine she does not want to take up with neurologist go home and getting over a home pack of OxyIR that she can use 5 mg, one or 2 pills every 4-6 hours as needed. This may make her sleep and help her. She is not driving. I encouraged to follow-up with her doctor tomorrow. Her blood pressure was elevated significant initially which I think was related to pain however prior discharge this to become normotensive. She was happy with the plan and discharged home. Medication Reconcilliation Current Medication List: was personally reviewed by me Blood Pressure Screening Patient's blood pressure: Elevated blood pressure Blood pressure disposition: Elevated BP felt to be situational Impression Primary Impression: Migraine Additional Impression: Scribe Attestation The scribe's documentation has been prepared under my direction and personally reviewed by me in its entirety. I confirm that the note above accurately reflects all work, treatment, procedures, and medical decision making performed by me. Departure Information Dispostion Home / Self-Care Referrals No Doctor, Assigned (PCP) Forms HOME CARE DOCUMENTATION FORM, IMPORTANT VISIT INFORMATION Patient Instructions My [facility] Additional Instructions Rest. Drink plenty of fluids. For pain may use acetaminophen/Tylenol, maximum of 650 mg every 6 hours. Do not take with any other medications that contain acetaminophen/Tylenol Do not use ibuprofen or aspirin For more severe pain, may try OxyIR 5 mg, one or 2 pills every 4-6 hours as needed OxyIR may make you drowsy and do not take before drinking, driving, working Return if: Increasing pain, worsening of symptoms, fever or chills, any new problems or concerns. Follow up with her doctor tomorrow for recheck Problem Qualifiers
[2017-07-06] MEDS ORDERED: ACETAMINOPHEN 500 MG TAB PO STA (18:12)
[2017-07-06] MEDS ORDERED: PROCHLORPERAZINE 5 MG/ML 2 ML VIAL IV STA (18:12)
[2017-07-06] MEDS ORDERED: ONDA-63 PO (18:17)
[2017-07-06] MEDS ORDERED: LEVO200T6 PO (18:17)
[2017-07-06 18:59] VITALS: BP 136/91; PULSE 72; O2SAT 98
[2017-07-06] MEDS ORDERED: OXYCODONE IR HOME PACK PO ONE (19:00)
[2017-07-06] MEDS ORDERED: VENL150C56 PO (19:36)
== END 2017-07-06 19:38 | disposition home or self-care (01) ==
LOC: C.EDB 17:43
DX: O99.351 Diseases of the nervous system complicating pregnancy, first trimester (principal); O99.341 Other mental disorders complicating pregnancy, first trimester; O99.281 Endocrine, nutritional and metabolic diseases complicating pregnancy, first trimester; G43.909 Migraine, unspecified, not intractable, without status migrainosus; F41.9 Anxiety disorder, unspecified; F32.9 Major depressive disorder, single episode, unspecified; E03.9 Hypothyroidism, unspecified; Z3A.10 10 weeks gestation of pregnancy; Z83.3 Family history of diabetes mellitus

== ENCOUNTER 2017-07-24 12:15 | Emergency (ER) | payer OTHER ==
[~2017-07-24] VITALS: Ht 165.1 cm; Wt 85.9 kg
[~2017-07-24 12:15] MED LIST changes: -BCPILLS PO; -EFF/375 PO; -EFFSR150 PO; -LEVO150T9 PO; +LEVO200T6 PO; -LISI-461 PO; -METF1TAB85 PO; -NORGTAB36 PO; +ONDA-63 PO; -PHEN37.5 PO; +VENL150C56 PO; -VENL37.593 PO
[2017-07-24 12:17] VITALS: TEMP 36.8
[2017-07-24] MEDS ORDERED: ONDANSETRON INJ 2 MG/ML 2 ML VIAL IV STA (12:45)
[2017-07-24] MEDS ORDERED: SODIUM CHLORIDE 0.9% 1000ML 1,000 ML IV STA (12:45)
[2017-07-24 13:03] VITALS: Ht 165.1 cm; Wt 85.9 kg
[2017-07-24 13:04] VITALS: O2SAT 96
[2017-07-24] MEDS ORDERED: LBT100 PO (13:04)
[2017-07-24] MEDS ORDERED: MULT-506 PO (13:04)
[2017-07-24 13:05] LABS: BASO % 0.1 %; BASO ABS # 0.01 K/uL (0-0.2); COMPLETE YES; EOS % 0.8 %; HEMATOCRIT 41.1 % (37-47); IG% 0.3 %; LYMPH % 21.6 %; LYMPH ABS # 2.46 K/uL (1.2-3.4); MEAN CELL VOLUME 91.3 fL (80-100); MEAN CORPUSCULAR HEMOGLOBIN 30.4 pg (25-34); MEAN CORPUSCULAR HGB CONC 33.3 g/dl (32-36); MEAN PLATELET VOLUME 10.3 fL (7.4-10.4); MONO % 6.1 %; NEUT % 71.1 %; PLATELET COUNT 241 K/uL (130-400); WHITE BLOOD COUNT 11.38 K/uL (4.8-10.8)
--- NOTE | 2017-07-24 13:36 | EMERGENCY ROOM VISIT NOTE ---
History Report prepared by Martin: Esmer Goldman Under the Supervision of: Dr. Alfonso Stovall D.O. 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 The patient is currently 12 weeks . She called the division order analyst community development aide doctor who sent her to the ED. She has been feeling dizzy and nauseous. Her dizziness worsens when she stands up. She feels like she might pass out. She denies any room spinning. She has some lower abdominal cramping which feels like menstrual cramps which started yesterday. She has had some vomiting. She denies any increased urination, hematuria, vaginal bleeding, leg cramping, or SOB. This is her 4th . She has 2 children and 1 miscarriage. She does not recall having these symptoms with her previous pregnancies. She was started on labetalol 2 weeks ago for hypertension related to her . She was on labetalol during her previous without any problems. She denies any other new medications. She denies any previous surgeries. She denies any tobacco or alcohol use. Source of History: patient Onset: yesterday Position: other (global) Quality: other (dizziness) Timing: other (persistent) Modifying Factors (Worsening): other (standing up) Associated Symptoms: + nausea, + vomiting, + abdominal pain, No SOB, No urinary symptoms Note: Pt denies vaginal bleeding, leg cramping. Review of Systems See HPI for pertinent positives & negatives. A total of 10 systems reviewed and were otherwise negative. Past Medical & Surgical Medical Problems: (1) Anxiety State Nos (2) Depression (3) Hypoinsulinemia (4) Hypothyroidism Nos (5) Kidney stones (6) Migraine Unspecified W/O Intractable Migraine (7) Removal of ovarian cyst (8) Tobacco Use Disorder (9) [place] Teeth Removal Family History Cancer Diabetes mellitus Social History Smoking Status: Never Smoker Alcohol Use: occasionally Marital Status: Housing Status: lives with family Occupation Status: employed Current/Historical Medications Scheduled Labetalol HCl (Labetalol HCl), 1 TAB PO DAILY Levothyroxine Sodium (Levothyroxine Sodium), 200 MCG PO QAM Multivitamin (Multivitamin), 1 TAB PO DAILY Ondasetron Odt (Zofran Odt), 4 MG SL Q6H Venlafaxine Hcl (Effexor Extended Rel), 150 MG PO DAILY Scheduled PRN Ondansetron (Ondansetron HCl), 8 MG PO TID PRN for Nausea Allergies Coded Allergies: Prednisone (Verified Allergy, Severe, resp, 07/24/17) Sulfa Drugs (Verified Allergy, Mild, 07/24/17) Physical Exam Vital Signs Date Time Temp Pulse Resp B/P (MAP) Pulse Ox O2 Delivery O2 Flow Rate FiO2 07/24/17 16:52 76 18 134/76 96 07/24/17 15:56 94 18 146/76 96 Room Air 07/24/17 13:15 80 134/81 96 Room Air 74 143/88 88 134/91 07/24/17 13:04 96 Room Air 07/24/17 12:35 96 Room Air 07/24/17 12:31 80 07/24/17 12:17 36.8 92 20 146/91 99 Room Air Physical Exam GENERAL: Patient is awake, alert, and in no acute distress. Patient is resting comfortably and showing no signs of anxiety EYES: The conjunctivae are clear. The pupils are round and reactive. EARS, NOSE, MOUTH AND THROAT: The nose is without any evidence of any deformity. Mucous membranes are moist tongue is midline NECK: The neck is nontender and supple. RESPIRATORY: Normal respiratory effort is noted there is no evidence of wheezing rhonchi or rales CARDIOVASCULAR: Regular rate and rhythm noted there no murmurs rubs or gallops normal S1 normal S2 GASTROINTESTINAL: The abdomen is soft. There was lower abdominal tenderness noted to palpation, but no guarding or rigidity. There was mild suprapubic tenderness to palpation. BACK: No midline tenderness or or step-off noted range of motion in flexion extension as well as rotation no signs of muscle spasm noted MUSCULOSKELETAL/EXTREMITIES: There is no evidence of gross deformity full range of motion is noted in the hips and shoulders SKIN: There is no obvious evidence of any rash. There are no petechiae, pallor or cyanosis noted. NEUROLOGIC: Patient is awake alert and oriented x3 strength is symmetric patellar reflexes are 2+ bilaterally Medical Decision & Procedures ER Provider Diagnostic Interpretation: Radiology results as stated below per my review and radiologist interpretation: LIMITED (US) HISTORY: 32 years-old Female CRAMPING AND DIZZINESS acute abdominal cramping and dizziness with COMPARISON: Pelvic ultrasound 12/04/2015 TECHNIQUE: Multiple real-time sonographic images of the deep pelvic structures were obtained transabdominally assessing grayscale appearance, color Doppler flow and M-mode analysis. FINDINGS: Gravid uterus measures 14.5 x 8.0 x 10.8 cm and is anteflexed. Placenta is seen posteriorly and appears unremarkable. Single living intrauterine gestation is noted, crown-rump length measuring 6.2 cm which correlates with estimated gestational age of 12 weeks and 4 days. Date of delivery calculated at 02/05/2018. heart rate is measured at 150 bpm. Be beam measures 1.9 cm, 12 weeks and 6 days. The cervix is closed. No significant free pelvic fluid. Both ovaries measure within normal limits and are unremarkable without focal mass identified. IMPRESSION: 1. Single living intrauterine gestation with estimated gestational age of 12 weeks and 4 days by crown-rump length measurement. Estimated date of delivery calculated at 02/05/2018. heart rate measures 150 bpm. 2. Unremarkable sonographic appearance of the placenta and ovaries. 3. Closed cervix. The above report was generated using voice recognition software. It may contain grammatical, syntax or spelling errors. Electronically signed by: Bill Crawford M.D. 07/24/2017 3:25 PM Dictated Date/Time: 07/24/2017 3:22 PM HEAD WITHOUT CONTRAST (CT) CLINICAL HISTORY: 32 years-old Female with vertigo. Acute vertigo TECHNIQUE: Multiple axial CT images of the head were obtained without contrast. A dose lowering technique was utilized adhering to the principles of ALARA. CT DOSE: 537.48 mGy.cm COMPARISON: CT head 09/16/2016. FINDINGS: No acute intracranial hemorrhage, midline shift, mass, large territorial ischemia or abnormal extra-axial collection. The calvarium is intact. The mastoid air cells, and middle ear cavities are clear. Mild mucosal thickening of the left maxillary sinus. IMPRESSION: No acute intracranial abnormality. The above report was generated using voice recognition software. It may contain grammatical, syntax or spelling errors. Electronically signed by: Bill Crawford M.D. 07/24/2017 4:40 PM Dictated Date/Time: 07/24/2017 4:38 PM Laboratory Results 07/24/17 12:34 Red Blood Count 4.50, Mean Corpuscular Volume 91.3, Mean Corpuscular Hemoglobin 30.4, Mean Corpuscular Hemoglobin Concent 33.3, Mean Platelet Volume 10.3, Neutrophils (%) (Auto) 71.1, Lymphocytes (%) (Auto) 21.6, Monocytes (%) (Auto) 6.1, Eosinophils (%) (Auto) 0.8, Basophils (%) (Auto) 0.1, Neutrophils # (Auto) 8.10, Lymphocytes # (Auto) 2.46, Monocytes # (Auto) 0.69, Eosinophils # (Auto) 0.09, Basophils # (Auto) 0.01 07/24/17 12:34 Test 07/24/17 12:34 07/24/17 13:00 White Blood Count 11.38 K/uL (4.8-10.8) Red Blood Count 4.50 M/uL (4.2-5.4) Hemoglobin 13.7 g/dL (12.0-16.0) Hematocrit 41.1 % (37-47) Mean Corpuscular Volume 91.3 fL (80-100) Mean Corpuscular Hemoglobin 30.4 pg (25-34) Mean Corpuscular Hemoglobin Concent 33.3 g/dl (32-36) Platelet Count 241 K/uL (130-400) Mean Platelet Volume 10.3 fL (7.4-10.4) Neutrophils (%) (Auto) 71.1 % Lymphocytes (%) (Auto) 21.6 % Monocytes (%) (Auto) 6.1 % Eosinophils (%) (Auto) 0.8 % Basophils (%) (Auto) 0.1 % Neutrophils # (Auto) 8.10 K/uL (1.4-6.5) Lymphocytes # (Auto) 2.46 K/uL (1.2-3.4) Monocytes # (Auto) 0.69 K/uL (0.11-0.59) Eosinophils # (Auto) 0.09 K/uL (0-0.5) Basophils # (Auto) 0.01 K/uL (0-0.2) RDW Standard Deviation 45.3 fL (36.4-46.3) RDW Coefficient of Variation 13.7 % (11.5-14.5) Immature Granulocyte % (Auto) 0.3 % Immature Granulocyte # (Auto) 0.03 K/uL (0.00-0.02) Anion Gap 12.0 mmol/L (3-11) Est Creatinine Clear Calc Drug Dose 144.6 ml/min Estimated GFR () 140.0 Estimated GFR (Non- 120.8 BUN/Creatinine Ratio 12.6 (10-20) Calcium Level 10.0 mg/dl (8.5-10.1) Magnesium Level 1.8 mg/dl (1.8-2.4) Total Bilirubin 0.3 mg/dl (0.2-1) Direct Bilirubin < 0.1 mg/dl (0-0.2) Aspartate Amino Transf (AST/SGOT) 11 U/L (15-37) Alanine Aminotransferase (ALT/SGPT) 21 U/L (12-78) Alkaline Phosphatase 69 U/L (45-117) Total Protein 7.2 gm/dl (6.4-8.2) Albumin 3.3 gm/dl (3.4-5.0) Thyroid Stimulating Hormone (TSH) 0.060 uIu/ml (0.300-4.500) Free Thyroxine 1.39 ng/dl (0.80-1.60) Urine Color YELLOW Urine Appearance CLEAR (CLEAR) Urine pH 6.5 (4.5-7.5) Urine Specific [place] 1.018 (1.000-1.030) Urine Protein NEG (NEG) Urine Glucose (UA) NEG (NEG) Urine Ketones NEG (NEG) Urine Occult Blood NEG (NEG) Urine Nitrite NEG (NEG) Urine Bilirubin NEG (NEG) Urine Urobilinogen NEG (NEG) Urine Leukocyte Esterase NEG (NEG) Laboratory results per my review. Medications Administered Medications (Trade) Dose Ordered Sig/Raghavendra Route Start Time Stop Time Status Last Admin Dose Admin Ondansetron HCl (Zofran Inj) 4 mg NOW STAT IV 07/24/17 12:45 07/24/17 12:47 DC 07/24/17 13:02 4 MG Sodium Chloride 1,000 ml @ 999 mls/hr Q1H1M STAT IV 07/24/17 12:45 07/24/17 13:45 DC 07/24/17 13:02 999 MLS/HR Meclizine HCl (Antivert Tab) 25 mg NOW STAT PO 11/12/17 16:02 07/24/17 16:03 DC 07/24/17 16:07 25 MG Meclizine HCl (Antivert 25MG Home Pack) 1 homepack UD ONCE PO 07/24/17 16:15 07/24/17 16:16 DC 07/24/17 16:48 1 HOMEPACK ECG Indication: other (dizziness) Rate (beats per minute): 71 Rhythm: normal sinus Findings: no ectopy, other (no acute ST segment abnormality) Comparison ECG Date: 16-Sep-2016 Change: no significant change ED Course 1240: The patient was evaluated in room C8. A complete history and physical examination were performed. 1245: NSS 1000 ml @ 999 mls/hr IV, Zofran Inj 4 mg IV. 1545: I reevaluated the patient. She now says that she has room spinning. I updated her on the results. 1549: I discussed the patient's case with Dr. Zimmer [facility] Installer Apprentice. She discussed her recommendations with me. We are in agreement with the plan. 1602: Meclizine HCl 25 mg PO. 1603: I reevaluated the patient. I updated her on the plan. 1615: Meclizine HCl 1 homepack PO. 1643: Upon reevaluation, the patient is resting comfortably. I discussed the results and treatment plan with her. She verbalized agreement of the treatment plan. She was discharged home. Medical Decision Prior records/ancillary studies reviewed. Triage Nursing notes reviewed. The patient's history was concerning for dizziness. Differential diagnosis: Etiologies such as benign positional vertigo, dehydration, hypovolemia, anemia, tumor, infection, hypoglycemia, electrolyte abnormalities, cardiac sources, intracerebral event, toxicologic, neurologic, as well as others were entertained. The patient is a 32-year-old female who presented to emergency department for dizziness. She initially described her as dizziness as near syncope. She was treated with IV fluids and Zofran in the emergency department. On further reevaluation she also complained of vertigo and states that she's had this in the past. The patient does not have a physical exam consistent with an acute surgical abdomen. She has no focal neurologic deficit. I discussed the patient' s laboratory and radiographic studies with her. She does have elevated blood pressure but states that she has a history of elevated blood pressure specialist . She is currently taking antihypertensives. The patient was encouraged to rest and avoid any strenuous activity. I discussed her case with the on-call Sean MUSIC INTERN physician. She was also encouraged to and he' ll medications as prescribed and follow-up with her family doctor soon as possible. She is also encouraged return to the emergency department immediately if symptoms change worsen or the need arises. Medication Reconcilliation Current Medication List: was personally reviewed by me Blood Pressure Screening Patient's blood pressure: Elevated blood pressure Blood pressure disposition: Elevated BP felt to be situational, Referred to PCP Consults Time Called: [id number] Consulting Physician: Sean Mcknight Installer Apprentice Returned Call: [phone] I discussed the patient's case with her. She discussed her recommendations with me. We are in agreement with the plan. Impression Primary Impression: Vertigo Additional Impressions: Dizziness Nausea Scribe Attestation The scribe's documentation has been prepared under my direction and personally reviewed by me in its entirety. I confirm that the note above accurately reflects all work, treatment, procedures, and medical decision making performed by me. Departure Information Dispostion Home / Self-Care Prescriptions Ondasetron Odt (ZOFRAN ODT) 4 Mg Tab 4 MG SL Q6H for Nausea, #15 TAB Prov: Alfonso Stovall, 07/24/17 Referrals Gricelda Villa D.O. (PCP) Canan. Zimmer MD Forms HOME CARE DOCUMENTATION FORM, IMPORTANT VISIT INFORMATION Patient Instructions ED Dizziness [facility], My [facility] Additional Instructions Call your family in the morning to schedule a follow-up appointment. Continue all medications as prescribed. Drink plenty clear liquids. You may require further studies such as an MRI or CAT scan of the brain or possibly a referral to an ear nose and throat physician if symptoms do not improve. Return to the emergency apartment immediately if symptoms change worsen or the need arises. Problem Qualifiers
[2017-07-24 13:44] LABS: ALT/SGPT 21 U/L (12-78); AST/SGOT 11 U/L (15-37); BLOOD UREA NITROGEN 8 mg/dl (7-18); BUN/CREATININE RATIO 12.6 (10-20); CARBON DIOXIDE 25 mmol/L (21-32); CHLORIDE 103 mmol/L (98-107); CREATININE 0.61 mg/dl (0.60-1.20); GLUCOSE 84 mg/dl (70-99); MAGNESIUM 1.8 mg/dl (1.8-2.4); POTASSIUM 3.8 mmol/L (3.5-5.1); SODIUM 140 mmol/L (136-145)
[2017-07-24 13:55] LABS: ALKALINE PHOSPHATASE 69 U/L (45-117)
[2017-07-24 14:30] LABS: URINE APPEARANCE CLEAR (CLEAR); URINE BILIRUBIN NEG (NEG); URINE COLOR YELLOW; URINE NITRITE NEG (NEG); URINE PH 6.5 (4.5-7.5); URINE SPECIFIC GRAVITY 1.018 (1.000-1.030); UROBILINOGEN NEG (NEG)
[2017-07-24 14:33] LABS: MANUAL MICROSCOPIC REQUIRED? NO; REVIEW REQ? NO
--- NOTE | 2017-07-24 15:26 | DIAGNOSTIC IMAGING REPORT ---
LIMITED (US) HISTORY: 32 years-old Female CRAMPING AND DIZZINESS acute abdominal cramping and dizziness with COMPARISON: Pelvic ultrasound 12/04/2015 TECHNIQUE: Multiple real-time sonographic images of the deep pelvic structures were obtained transabdominally assessing grayscale appearance, color Doppler flow and M-mode analysis. FINDINGS: Gravid uterus measures 14.5 x 8.0 x 10.8 cm and is anteflexed. Placenta is seen posteriorly and appears unremarkable. Single living intrauterine gestation is noted, crown-rump length measuring 6.2 cm which correlates with estimated gestational age of 12 weeks and 4 days. Date of delivery calculated at 02/05/2018. heart rate is measured at 150 bpm. Be beam measures 1.9 cm, 12 weeks and 6 days. The cervix is closed. No significant free pelvic fluid. Both ovaries measure within normal limits and are unremarkable without focal mass identified. IMPRESSION: 1. Single living intrauterine gestation with estimated gestational age of 12 weeks and 4 days by crown-rump length measurement. Estimated date of delivery calculated at 02/05/2018. heart rate measures 150 bpm. 2. Unremarkable sonographic appearance of the placenta and ovaries. 3. Closed cervix. The above report was generated using voice recognition software. It may contain grammatical, syntax or spelling errors. Electronically signed by: Bill Crawford M.D. 07/24/2017 3:25 PM Dictated Date/Time: 07/24/2017 3:22 PM
[2017-07-24] MEDS ORDERED: ONDA4TAB10 SL (15:55)
[2017-07-24] MEDS ORDERED: MECLIZINE HCL 25 MG TAB PO STA (16:02)
[2017-07-24] MEDS ORDERED: MECLIZINE HCL 25MG HOME PACK PO ONE (16:15)
--- NOTE | 2017-07-24 16:41 | DIAGNOSTIC IMAGING REPORT ---
HEAD WITHOUT CONTRAST (CT) CLINICAL HISTORY: 32 years-old Female with vertigo. Acute vertigo TECHNIQUE: Multiple axial CT images of the head were obtained without contrast. A dose lowering technique was utilized adhering to the principles of ALARA. CT DOSE: 537.48 mGy.cm COMPARISON: CT head 09/16/2016. FINDINGS: No acute intracranial hemorrhage, midline shift, mass, large territorial ischemia or abnormal extra-axial collection. The calvarium is intact. The mastoid air cells, and middle ear cavities are clear. Mild mucosal thickening of the left maxillary sinus. IMPRESSION: No acute intracranial abnormality. The above report was generated using voice recognition software. It may contain grammatical, syntax or spelling errors. Electronically signed by: Bill Crawford M.D. 07/24/2017 4:40 PM Dictated Date/Time: 07/24/2017 4:38 PM
[2017-07-24 16:52] VITALS: BP 134/76; PULSE 76; O2SAT 96
== END 2017-07-24 16:54 | disposition home or self-care (01) ==
LOC: C.EDB 12:16 → C.EDC 16:54
DX: R42 Dizziness and giddiness (principal); R11.0 Nausea; O13.1 Gestational [pregnancy-induced] hypertension without significant proteinuria, first trimester; Z3A.12 12 weeks gestation of pregnancy; O99.341 Other mental disorders complicating pregnancy, first trimester; F41.9 Anxiety disorder, unspecified; F32.9 Major depressive disorder, single episode, unspecified; O99.281 Endocrine, nutritional and metabolic diseases complicating pregnancy, first trimester; E03.9 Hypothyroidism, unspecified; Z87.442 Personal history of urinary calculi; Z83.3 Family history of diabetes mellitus

== ENCOUNTER → 2017-12-15 | Outpatient (CLI) | payer OTHER ==
[~2017-12-15] MED LIST changes: +LBT100 PO; +MULT-506 PO; +ONDA4TAB10 SL
--- NOTE | 2017-12-15 15:42 | DIAGNOSTIC IMAGING REPORT ---
ULTRASOUND LEFT UPPER EXTREMITY VENOUS CLINICAL HISTORY: Left arm pain. COMPARISON STUDY: No priors. TECHNIQUE: Real-time, grayscale, and color Doppler sonography of the deep veins of the left upper extremity is performed. Compression and augmentation were utilized. FINDINGS: There is no sonographic evidence of deep venous thrombosis identified in the left upper extremity. The left internal jugular, axillary, and brachial veins are patent and normally compressible. Normal venous waveforms and augmentation are seen within the left subclavian vein. The cephalic and basilic veins are clear. The visualized radial and ulnar veins are patent. IMPRESSION: There is no sonographic evidence of deep venous thrombosis identified in the left upper extremity. Electronically signed by: Carlos Bass M.D. 12/15/2017 3:40 PM Dictated Date/Time: 12/15/2017 3:40 PM
== END | disposition home or self-care (01) ==
LOC: C.ULTRBC 14:47
PROVIDERS: ATTEND Physician Assistant
DX: M79.602 Pain in left arm (principal); M79.601 Pain in right arm; S63.502A Unspecified sprain of left wrist, initial encounter; X58.XXXA Exposure to other specified factors, initial encounter